=== PATIENT | female | born 1950 | race Caucasian/White ===

== ENCOUNTER 2019-01-10 14:36 | Emergency (ER) | payer SELFPAY ==
[~2019-01-10] VITALS: Ht 170.2 cm; Wt 91.4 kg
[2019-01-10 14:36] VITALS: BP 103/52
[2019-01-10] MEDS ORDERED: LEVO50TA5 PO (15:58)
[2019-01-10] MEDS ORDERED: QUET1TAB7 PO (15:58)
[2019-01-10] MEDS ORDERED: PARO5TAB PO (15:58)
[2019-01-10] MEDS ORDERED: ROPI3TAB3 PO (15:58)
== END 2019-01-10 16:30 | disposition left against medical advice (07) ==
LOC: M ED 14:36
DX: Z53.29 Procedure and treatment not carried out because of patient's decision for other reasons (principal)